=== PATIENT | female | born 1995 | race Caucasian/White ===

== ENCOUNTER 2017-01-07 07:57 | Emergency (ER) | payer MEDICAID ==
[2017-01-07 08:04] VITALS: BP 127/91; PULSE 102; RESP 20; TEMP 97.7; O2SAT 98
--- NOTE | 2017-01-07 08:31 | EDPHY ---
General Narrative: CHIEF COMPLAINT: Depression, suicidal thoughts HISTORY OF PRESENT ILLNESS: Patient complains of feeling increasingly depressed over the past few weeks. This has been compound by the fact that her family seems to not care about these feelings. She says that she has become so depressed that she has been thinking about killing herself over the past few days. These thoughts include jumping off a building. She does not know whether she would truly go through with. She has been thinking about this multiple times a day and these thoughts frightened her. She has no previous attempts but does have history of depression and taking Prozac. She does see a therapist and a psychiatrist in [facility]. She has previous hospitalizations for the same thoughts. No other associated complaints or modifying factors. PSYCHIATRIC DIAGNOSES: Depression. Taking Prozac PRIOR PSYCHIATRIC EVALUATIONS: Approximately 2 years ago in [facility]. M1/DETAINER: Dr. Bren Campuzano, 8:20 a.m. REVIEW OF SYSTEMS: Ten systems reviewed and are negative unless otherwise noted in the HPI EXAMINATION General Appearance: Alert, no distress, sad affect Head: normocephalic, atraumatic Eyes: Pupils equal and round, no conjunctival pallor or injection ENT, Mouth: Mucous membranes moist Neck: Normal inspection, supple, non-tender Respiratory: Lungs are clear to auscultation. No wheezing or crackles Cardiovascular: Regular rate and rhythm. No murmur Gastrointestinal: Abdomen is soft and nontender Back: non-tender, no bony abnormalities Neurological: A&O, nonfocal, normal gait. Strength is symmetric. Skin: Warm and dry, no rash. No obvious cut wounds to the arms Extremities: Nontender, no pedal edema. Moving all 4 extremities spontaneously and symmetrically. Psychiatric: Flat and sad affect. Suicidal ideation with thoughts of pain off of a building. Reports depression. Denies ingestion of pills DIFFERENTIAL DIAGNOSES: Including but not limited to suicidal ideation, depression MDM: 8:20 a.m. Increasing depression and suicidal thoughts. Plan of jumping off a building. She is not sure whether she would actually do it. She expresses that she has no family support she feels that her family does not care about these thoughts. She is very sad on examination as a very flat affect. She reports that she has been taking her Prozac and has no other medications prescribed. She denies ingesting any medications or attempting to harm herself thus far 10:00 a.m. Laboratory studies are unremarkable. She has been medically cleared and EPS has been notified. 1:45 p.m. Patient has been evaluated mental professional, Janell. The mother is at bedside for this evaluation. She informs patient has developmental delay and low IQ. The patient's statements of self-harm have been going on for over a year, and they feel likely this is related to her developmental delay. She does not express any intent to do so. The mother is with her and feels the patient is safe to go home in her care. The mental health professional on agrees with this and recommends that the hold be lifted. She has signed a safety plan. She has been provided multiple outpatient resources. The mother is comfortable this plan like to take her home. The patient is comfortable this is well. She will be discharged in stable condition with outpatient resources. - History Smoking Status: Never smoked - Objective Vital Signs: Initial Vital Signs Temperature (C) 97.7 F 01/07/17 08:01 Heart Rate 102 H 01/07/17 08:01 Respiratory Rate 20 01/07/17 08:01 Blood Pressure 127/91 H 01/07/17 08:01 O2 Sat (%) 98 01/07/17 08:01 O2 Delivery Mode Room Air Allergies/Adverse Reactions: No Known Allergies Allergy (Unverified 01/07/17 08:01) Home Medications: Medication Instructions Recorded Control 01/07/17 Prozac 20 MG (*) 01/07/17 Laboratory Results: Laboratory Results 01/07/17 08:42 01/07/17 08:42 01/07/17 01/07/17 01/07/17 09:25 08:42 08:42 WBC RBC Hgb Hct MCV MCH MCHC RDW Plt Count MPV Neut % (Auto) Lymph % (Auto) Reeves % (Auto) Eos % (Auto) Baso % (Auto) Nucleat RBC Rel Count Absolute Neuts (auto) Absolute Lymphs (auto) Absolute Monos (auto) Absolute Eos (auto) Absolute Basos (auto) Absolute Nucleated RBC Immature Gran % Immature Gran # Sodium 142 mEq/L mEq/L (134-144) Potassium 4.1 mEq/L mEq/L (3.5-5.2) Chloride 106 mEq/L mEq/L (97-110) Carbon Dioxide 20 mEq/l L mEq/l (22-31) Anion Gap 16 mEq/L mEq/L (8-16) BUN 14 mg/dL mg/dL (7-23) Creatinine 0.8 mg/dL mg/dL (0.6-1.0) Estimated GFR > 60 Glucose 84 mg/dL mg/dL (70-100) Calcium 9.5 mg/dL mg/dL (8.5-10.4) Beta HCG, Qual NEGATIVE Salicylates < 1.0 mg/dL L mg/dL (2.0-20.0) Urine Opiates Screen NEGATIVE (NEGATIVE) Acetaminophen < 10 mcg/mL L mcg/mL (10-30) Urine Barbiturates NEGATIVE (NEGATIVE) Ur Phencyclidine Scrn NEGATIVE (NEGATIVE) Ur Amphetamine Screen NEGATIVE (NEGATIVE) U Benzodiazepines Scrn NEGATIVE (NEGATIVE) Urine Cocaine Screen NEGATIVE (NEGATIVE) U Marijuana (THC) Screen NEGATIVE (NEGATIVE) Ethyl Alcohol < 10 mg/dL mg/dL (0-10) 01/07/17 08:42 WBC 7.08 10^3/uL 10^3/uL (3.80-9.50) RBC 4.74 10^6/uL 10^6/uL (4.18-5.33) Hgb 13.6 g/dL g/dL (12.6-16.3) Hct 40.7 % % (38.0-47.0) MCV 85.9 fL fL (81.5-99.8) MCH 28.7 pg pg (27.9-34.1) MCHC 33.4 g/dL g/dL (32.4-36.7) RDW 13.6 % % (11.5-15.2) Plt Count 324 10^3/uL 10^3/uL (150-400) MPV 9.6 fL fL (8.7-11.7) Neut % (Auto) 69.9 % % (39.3-74.2) Lymph % (Auto) 21.2 % % (15.0-45.0) Reeves % (Auto) 6.2 % % (4.5-13.0) Eos % (Auto) 2.0 % % (0.6-7.6) Baso % (Auto) 0.4 % % (0.3-1.7) Nucleat RBC Rel Count 0.0 % % (0.0-0.2) Absolute Neuts (auto) 4.95 10^3/uL 10^3/uL (1.70-6.50) Absolute Lymphs (auto) 1.50 10^3/uL 10^3/uL (1.00-3.00) Absolute Monos (auto) 0.44 10^3/uL 10^3/uL (0.30-0.80) Absolute Eos (auto) 0.14 10^3/uL 10^3/uL (0.03-0.40) Absolute Basos (auto) 0.03 10^3/uL 10^3/uL (0.02-0.10) Absolute Nucleated RBC 0.00 10^3/uL 10^3/uL (0-0.01) Immature Gran % 0.3 % % (0.0-1.1) Immature Gran # 0.02 10^3/uL 10^3/uL (0.00-0.10) Sodium Potassium Chloride Carbon Dioxide Anion Gap BUN Creatinine Estimated GFR Glucose Calcium Beta HCG, Qual Salicylates Urine Opiates Screen Acetaminophen Urine Barbiturates Ur Phencyclidine Scrn Ur Amphetamine Screen U Benzodiazepines Scrn Urine Cocaine Screen U Marijuana (THC) Screen Ethyl Alcohol Departure - Departure Disposition: Home, Routine, Self-Care Clinical Impression: Cognitive developmental delay Depression Qualifiers: Depression Type: unspecified Qualified Code(s): F32.9 - Major depressive disorder, single episode, unspecified Condition: Good Instructions: Depression (ED) Additional Instructions: 1. Follow up with [facility] for outpatient resources 2. Contact 911 or present to the crisis Center for any changes in your depression or thoughts of self-harm 3. Follow up primary care physician as discussed Referrals: NOT,SURE [Other] - As per Instructions [facility] [Clinic] - As per Instructions
[2017-01-07 09:01] LABS: % IMMATURE GRANULYOCYTES 0.3 % (0.0-1.1); ABSOLUTE IMMATURE GRANULOCYTES 0.02 10^3/uL (0.00-0.10); ADD DIFF? NO; ADD MORPH? NO; ADD SCAN? NO; ATYPICAL LYMPHOCYTE FLAG 0 (0-99); FRAGMENT RBC FLAG 0 (0-99); HEMATOCRIT 40.7 % (38.0-47.0); HEMOGLOBIN 13.6 g/dL (12.6-16.3); LEFT SHIFT FLG 0 (0-99); LIPEMIA HEMOLYSIS FLAG 80 (0-99); MEAN CELL HEMOGLOBIN 28.7 pg (27.9-34.1); MEAN CELL HEMOGLOBIN CONCENTR. 33.4 g/dL (32.4-36.7); MEAN CELL VOLUME 85.9 fL (81.5-99.8); MEAN PLATELET VOLUME 9.6 fL (8.7-11.7); PLATELET CLUMPS FLAG 0 (0-99); PLATELET COUNT 324 10^3/uL (150-400); RED BLOOD CELL COUNT 4.74 10^6/uL (4.18-5.33); RED CELL DISTRIBUTION WIDTH 13.6 % (11.5-15.2)
[2017-01-07 09:16] LABS: ANION GAP 16 mEq/L (8-16); CALCIUM 9.5 mg/dL (8.5-10.4); CARBON DIOXIDE 20 mEq/l (22-31); CHLORIDE 106 mEq/L (97-110); CREATININE 0.8 mg/dL (0.6-1.0); ETHANOL SERUM < 10 mg/dL (0-10); GLOMERULAR FILTRATION RATE > 60; GLUCOSE 84 mg/dL (70-100); POTASSIUM 4.1 mEq/L (3.5-5.2); SALICYLATE < 1.0 mg/dL (2.0-20.0); SODIUM 142 mEq/L (134-144)
== END 2017-01-07 14:38 | disposition home or self-care (01) ==
DX: F32.9 Major depressive disorder, single episode, unspecified (principal); F81.9 Developmental disorder of scholastic skills, unspecified
CPT/HCPCS: 80305; G0480